=== PATIENT | male | born 1970 | race Caucasian/White ===

== ENCOUNTER 2017-05-28 11:35 | Emergency (ER) | payer BC ==
[2017-05-28 12:35] VITALS: BP 138/89
--- NOTE | 2017-05-28 13:33 | UC ---
Throat Pain/Nasal Cm HPI - HPI Summary HPI Summary: 47 male presents to ED with complaints of sinus pressure and nasal congestion. Has also had headache, cough and now sore throat and losing his voice. Symptoms have been ongoing for a week and seem to be worsening. Has tried all over the counter medication such as dayquil, mucinex and ibuprofen without relief. No other complaints. No PMHx. - History of Current Complaint Chief Complaint: UCRespiratory Stated Complaint: COLD SYMPTOMS/ST Time Seen by Provider: 05/28/17 12:56 Hx Obtained From: Patient Onset/Duration: Sudden Onset, Lasting Weeks, Still Present, Worse Since Severity: Mild Pain Intensity: 0 Pain Scale Used: 0-10 Numeric Cough: Productive Associated Signs & Symptoms: Positive: Dysphagia, Sinus Discomfort, Nasal Discharge - Allergies/Home Medications Allergies/Adverse Reactions: Allergies Allergy/AdvReac Type Severity Reaction Status Date / Time No Known Allergies Allergy Verified 05/28/17 12:32 Home Medications: Home Medications Diphenhydra/Phenyleph/Acetamin [Cold & Flu Relief Multi-S 12.5-5-325 mg/10Ml] 1 liq PO ONCE 05/28/17 [History Confirmed 05/28/17] PMH/Surg Hx/FS Hx/Imm Hx - Additional Past Medical History Additional PMH: Denies PMHx. - Surgical History Surgical History: None - Family History Known Family History: Positive: None - Social History Alcohol Use: None Substance Use Type: None Smoking Status (MU): Never Smoked Tobacco Review of Systems Constitutional: Negative ENT: Sore Throat, Nasal Discharge, Sinus Congestion, Sinus Pain/Tenderness Respiratory: Cough Cardiovascular: Negative Gastrointestinal: Negative Neurological: Headache All Other Systems Reviewed And Are Negative: Yes Physical Exam Triage Information Reviewed: Yes Appearance: No Pain Distress, Well-Nourished, Ill-Appearing - sounds very congested Vital Signs: Initial Vital Signs Temp 98.6 F 05/28/17 12:30 Pulse 82 05/28/17 12:30 Resp 18 05/28/17 12:30 BP 138/89 05/28/17 12:30 Pulse Ox 100 05/28/17 12:30 Vital Signs Reviewed: Yes Eyes: Positive: Conjunctiva Clear ENT: Positive: Hearing grossly normal, Pharynx normal - post nasal drip noted, Nasal congestion, TMs normal - serous effusion behind TM, Sinus tenderness, Uvula midline. Negative: Tonsillar swelling, Tonsillar exudate Dental: Positive: Percussion Tenderness @ - maxillary and frontal, Cervical Lymphadenopathy Neck: Positive: Supple, Nontender, No Lymphadenopathy Respiratory: Positive: Chest non-tender, Lungs clear, Normal breath sounds, No respiratory distress, No accessory muscle use Cardiovascular: Positive: RRR, No Murmur, Pulses Normal Neurological: Positive: Alert Throat Pain/Nasal Course/Dx - Course Course Of Treatment: due to physical exam findings, HPI and complaints appears to be suffering from sinusitis. will treat with augmentin, continue symptomatic/ otc medication. aware of worsening signs and symptoms to watch out for. follow up. - Differential Dx/Diagnosis Differential Diagnosis/HQI/PQRI: Pharyngitis, Sinusitis, URI Provider Diagnoses: sinusitis Discharge - Discharge Plan Condition: Good Disposition: HOME Prescriptions: Amoxicillin/Clavulanate TAB* [Augmentin TAB 875*] 875 mg PO BID #20 tab Fluticasone NASAL SPRAY 50MCG* [Flonase NASAL SPRAY 50MCG*] 2 spray BOTH NARES DAILY #1 btl Patient Education Materials: Sinusitis (ED), Warm Compress or Soak (ED) Referrals: [facility] [place] [facility] [Outside] Additional Instructions: Take prescribed medication as directed, take antibiotic until entire dose is finished. Also recommend for over the counter regimen: nasal saline rinses/xavier pot, mucinex and ibuprofen. Warm compresses, hot showers, extra pillow at bedtime and increase fluid intake. Any new or worsening symptoms please seek medical attention. Follow up with PCP.
== END 2017-05-28 13:44 | disposition home or self-care (01) ==
LOC: UCCORT 11:35
DX: J32.9 Chronic sinusitis, unspecified (principal)
CPT/HCPCS: 99202; G0463

== ENCOUNTER 2017-11-08 13:42 | Emergency (ER) | payer BC ==
[2017-11-08 14:20] VITALS: BP 140/99
--- NOTE | 2017-11-08 14:57 | UC ---
Lower Extremity/Ankle HPI - HPI Summary HPI Summary: 7-year-old male who presents here with a foreign body in his left foot. This occurred while picking blackberries barefooted. He doubts that his last tetanus shot was over 10 years ago. Denies a history of diabetes. - History of Current Complaint Chief Complaint: UCLowerExtremity Stated Complaint: LEFT FOOT CONCERN Time Seen by Provider: 11/08/17 14:30 Hx Obtained From: Patient Onset/Duration: Sudden Onset, Lasting Days Severity Initially: Moderate Severity Currently: Mild Pain Intensity: 4 Pain Scale Used: 0-10 Numeric Aggravating Factor(s): Standing, Ambulation Alleviating Factor(s): Rest Able to Bear Weight: Yes Feet (Multiple View): 1 - fb - Allergies/Home Medications Allergies/Adverse Reactions: Allergies Allergy/AdvReac Type Severity Reaction Status Date / Time No Known Allergies Allergy Verified 05/28/17 12:32 Home Medications: Home Medications NK [No Home Medications Reported] 11/08/17 [History Confirmed 11/08/17] PMH/Surg Hx/FS Hx/Imm Hx Previously Healthy: Yes Cardiovascular History: Deep Vein Thrombosis - Surgical History Surgical History: None - Family History Known Family History: Positive: Hypertension, Diabetes - Social History Alcohol Use: None Substance Use Type: None Smoking Status (MU): Never Smoked Tobacco - Immunization History Most Recent Tetanus Shot: UNKNOWN Review of Systems Constitutional: Negative Skin: Negative Eyes: Negative ENT: Negative Respiratory: Negative Cardiovascular: Negative Gastrointestinal: Negative Genitourinary: Negative Motor: Negative Neurovascular: Negative Musculoskeletal: Other: - FB sensation left foot Neurological: Negative Psychological: Negative Is Patient Immunocompromised?: No All Other Systems Reviewed And Are Negative: Yes Physical Exam Triage Information Reviewed: Yes Appearance: Well-Appearing, No Pain Distress, Well-Nourished Vital Signs: Initial Vital Signs Temp 99.1 F 11/08/17 14:12 Pulse 81 11/08/17 14:12 Resp 19 11/08/17 14:12 BP 140/99 11/08/17 14:12 Pulse Ox 97 11/08/17 14:12 Eyes: Positive: Conjunctiva Clear ENT: Positive: Hearing grossly normal. Negative: Nasal congestion, Nasal drainage, Trismus, Muffled voice, Hoarse voice Neck: Positive: Supple, Nontender Respiratory: Positive: Lungs clear, Normal breath sounds, No respiratory distress Cardiovascular: Positive: RRR, Pulses Normal Musculoskeletal: Positive: ROM Intact, No Edema Neurological: Positive: Alert Skin Exam: Other - FB Lower Extremity Course/Dx - Course Course Of Treatment: PROCEDURE: FOREIGN BODY REMOVAL LEFT FOOT. Thorn removed in toto from left foot using sterile technique and splinter forceps. TOLERATED PRCEDURE WELL - Differential Dx/Diagnosis Provider Diagnoses: foreign body removal left foot Discharge - Sign-Out/Discharge Documenting (check all that apply): Patient Departure - Discharge Plan Condition: Stable Disposition: HOME Patient Education Materials: Soft Tissue Foreign Body (ED) Referrals: Irena Barrientos PA [Primary Care Provider] - 2 Weeks (bp a little high here today...please get it rechecked in 2-8 weeks) Additional Instructions: recheck for new or worsening symptoms - Billing Disposition and Condition Condition: STABLE Disposition: Home
== END 2017-11-08 14:53 | disposition home or self-care (01) ==
LOC: UCCORT 13:42
DX: S91.342A Puncture wound with foreign body, left foot, initial encounter (principal); W45.8XXA Other foreign body or object entering through skin, initial encounter; Y93.01 Activity, walking, marching and hiking; Y92.9 Unspecified place or not applicable
CPT/HCPCS: 28190; 99211; G0463

== ENCOUNTER 2017-12-04 15:07 | Emergency (ER) | payer BC ==
[2017-12-04 16:09] VITALS: BP 130/97
--- NOTE | 2017-12-04 16:42 | ED ---
Lower Extremity - HPI Summary HPI Summary: 47 yr old male with insect bite to right medial and posterior lower leg. Occurred 5 days ago. Patient complaining of increased redness and swelling to the areas around the bites and concerned for infections. Denies fever or chills. No other complaints. Bee sting back of hand that is better than a few days ago as well. - History of Current Complaint Chief Complaint: UCSkin Stated Complaint: LEFT LEG SKIN COMPLAINT Time Seen by Provider: 12/04/17 16:22 Pain Intensity: 2 - Allergies/Home Medications Allergies/Adverse Reactions: Allergies Allergy/AdvReac Type Severity Reaction Status Date / Time No Known Allergies Allergy Verified 12/04/17 16:02 PMH/Surg Hx/FS Hx/Imm Hx Infectious Disease History: No Infectious Disease History: Denies: Traveled Outside the [place] in Last 30 Days - Family History Known Family History: Positive: Hypertension, Diabetes - Social History Occupation: Employed Full-time Lives: With Family Alcohol Use: None Substance Use Type: Reports: None Smoking Status (MU): Never Smoked Tobacco Review of Systems Constitutional: Negative Positive: Other - bug bites with redness and swelling to the left lower medial and posterior leg. All Other Systems Reviewed And Are Negative: Yes Physical Exam Triage Information Reviewed: Yes Vital Signs On Initial Exam: Initial Vitals Temp Pulse Resp BP Pulse Ox 98.2 F 97 22 130/97 99 12/04/17 16:03 12/04/17 16:03 12/04/17 16:03 12/04/17 16:03 12/04/17 16:03 Vital Signs Reviewed: Yes Appearance: Positive: Well-Appearing, No Pain Distress Skin: Positive: Other - bug bites with surrounding swelling and some cellulitis red component over the lower medial and posterior leg. Diameter 1 inch. No erythema migrans ENT: Positive: Normal ENT inspection Neck: Positive: Nontender Respiratory/Lung Sounds: Positive: Clear to Auscultation, Breath Sounds Present Cardiovascular: Positive: RRR. Negative: Murmur Abdomen Description: Negative: Distended Musculoskeletal: Positive: Other - no calf swelling left leg. No streaks or cellulitis up the leg. Neurological: Positive: Sensory/Motor Intact, Alert, Oriented to Person Place, Time, CN Intact II-III Psychiatric: Positive: Normal Diagnostics - Vital Signs Vital Signs Temp Pulse Resp BP Pulse Ox 12/04/17 16:03 98.2 F 97 22 130/97 99 - Laboratory Lab Statement: Any lab studies that have been ordered have been reviewed, and results considered in the medical decision making process. Lower Extremity Course/Dx - Course Course Of Treatment: 47 yr old with localized cellulitis to the left leg post insect bites. Rx with Doxy 10 days. - Diagnoses Provider Diagnoses: Bug bite, Cellulitis Discharge - Sign-Out/Discharge Documenting (check all that apply): Patient Departure All imaging exams completed and their final reports reviewed: No Studies - Discharge Plan Condition: Good Disposition: HOME Prescriptions: DOXYcycline CAP(*) [DOXYcycline 100MG CAP(*)] 100 mg PO BID #20 cap Patient Education Materials: Insect Bite or Sting (ED), Cellulitis (DC) Referrals: Irena Barrientos PA [Primary Care Provider] - 2 Days - Billing Disposition and Condition Condition: GOOD Disposition: Home
== END 2017-12-04 16:52 | disposition home or self-care (01) ==
LOC: UCCORT 15:07
DX: S80.861A Insect bite (nonvenomous), right lower leg, initial encounter (principal); L03.115 Cellulitis of right lower limb; W57.XXXA Bitten or stung by nonvenomous insect and other nonvenomous arthropods, initial encounter; Y93.9 Activity, unspecified; Y92.9 Unspecified place or not applicable
CPT/HCPCS: 99212; G0463